=== PATIENT | male | born 1960 | race Caucasian/White ===

== ENCOUNTER 2018-02-08 05:36 | Emergency (ER) | payer OTHER ==
[~2018-02-08] VITALS: Ht 182.9 cm; Wt 104.3 kg
[~2018-02-08 05:36] MED LIST: ADAL20KI; ADAL40PE SQ; Aspirin PO; BENA1TAB6 PO; FINA5TAB PO; MECL12.5 PO; OXYC1TAB15 PO
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
[2018-02-08] MEDS: oxyCODONE/APAP 5/325 1 TAB TABLET PO ONE (06:26)
[2018-02-08] MEDS ORDERED: ACET-704 PO (07:03)
[2018-02-08] MEDS: diazePAM 5 MG TABLET PO ONE (07:28)
[2018-02-08 07:35] VITALS: BP 190/94
--- NOTE | 2018-02-08 07:46 | RAD ---
Left shoulder, 3 views, 02/08/2018: HISTORY: Fall, shoulder pain There are small calcifications along the lateral margin of the left humeral head at the greater tuberosity level. These are likely tendinous calcifications, although cortical fractures of indeterminate age cannot be excluded. No major fracture or dislocation is identified. IMPRESSION: Small calcifications along the lateral margin of the greater tuberosity as described above, likely of tendinous origin. If shoulder pain persist, radiographic follow-up may be useful in excluding an underlying fracture. Electronically signed by: Vijay Beverly MD (02/08/2018 7:42 AM) [facility]
== END 2018-02-08 07:41 | disposition home or self-care (01) ==
LOC: ER 05:36
DX: S42.202A Unspecified fracture of upper end of left humerus, initial encounter for closed fracture (principal); E78.00 Pure hypercholesterolemia, unspecified; I10 Essential (primary) hypertension; Z88.5 Allergy status to narcotic agent; Z88.8 Allergy status to other drugs, medicaments and biological substances; W10.9XXA Fall (on) (from) unspecified stairs and steps, initial encounter; Y93.89 Activity, other specified; Y92.89 Other specified places as the place of occurrence of the external cause; Y99.8 Other external cause status
CPT/HCPCS: 73030; 99284

== ENCOUNTER → 2018-02-12 | Outpatient (CLI) | payer OTHER ==
[2018-02-08 07:35] VITALS: BP 190/94
[~2018-02-12] MED LIST changes: +ACET-704 PO
--- NOTE | 2018-02-12 16:28 | RAD ---
MR of the left shoulder Indication: Left shoulder pain for one week after a fall.. Comparison: None are available. Technique: Standard multiplanar sequences are obtained. Findings: Artifact: Mild motion degradation. Acromioclavicular joint:Intact. Rotator cuff: * Supraspinatus-infraspinatus tendon: Thickening with increased signal compatible with tendinosis. Small partial-thickness undersurface tear of the supraspinatus, no more than 30% deep with a linear morphology. No large or full-thickness tear. Small linear undersurface tear at the infraspinatus tendon attachment, about 90% across and 8 mm AP diameter. * Subscapularis tendon: Mild partial tearing. * Muscle bulk: Within normal limits * Subacromial subdeltoid bursa: Small effusion. Fluid: No significant glenohumeral effusion. Glenohumeral cartilage: No acute defect or advanced DJD. Labrum: Focal heterogeneous signal at the superior labral base, has the appearance of susceptibility effect may be related to prior surgery. If no surgical intervention here, then compatible with a small tear. Biceps tendon: Intact Bones: Comminuted nondisplaced posttraumatic fracture of the greater tuberosity with mild fragment elevation. Elevation measures about 7 mm. There is a linear rectangular defect within the anterosuperior humeral head presumably a anchor screw. Soft tissue: Intramuscular edema within the anterior deltoid muscle. There is also some more intense unorganized fluid signal/edema along the anterior proximal humerus.. Impression: 1. Nondisplaced comminuted posttraumatic fracture of the greater tuberosity. 2. Small superficial partial-thickness tear of the supraspinatus tendon, deep linear undersurface tear of the infraspinatus tendon. Partial subscapularis tendon tear. 3. Heterogeneous signal at the superior labrum, compatible with a tear, unless the patient has had surgical intervention here. 4. Soft tissue and intramuscular edema or contusion along the anterior shoulder. Electronically signed by: Aly Miller MD (02/12/2018 4:24 PM) [facility]
== END | disposition home or self-care (01) ==
LOC: MRI 15:10
PROVIDERS: ATTEND Orthopaedic Surgery Sports Medicine
DX: S42.92XA Fracture of left shoulder girdle, part unspecified, initial encounter for closed fracture (principal); M75.102 Unspecified rotator cuff tear or rupture of left shoulder, not specified as traumatic; M25.412 Effusion, left shoulder; R60.0 Localized edema; X58.XXXA Exposure to other specified factors, initial encounter; Y93.89 Activity, other specified; Y92.89 Other specified places as the place of occurrence of the external cause; Y99.8 Other external cause status
CPT/HCPCS: 73221

== ENCOUNTER → 2020-12-13 | Outpatient (CLI) | payer OTHER ==
[2018-03-07 10:40] VITALS: BP 145/74
[~2020-12-13] MED LIST changes: +AMOX1TAB58 PO; +BENA10TA67 PO; +HYDR-2759 PO; +HYDR-3164 PO; +PRAV40TA2 PO
--- NOTE | 2020-12-13 17:30 | KCIC ---
EXAMINATION: CT LOWER RIGHT EXTREMITY WITHOUT CONTRAST, 12/13/2020 2:17 PM CLINICAL INDICATION: Conformance protocol, preoperative planning right knee COMPARISON: Right knee radiograph 11/19/2020 TECHNIQUE: Helical CT imaging performed of the right lower extremity without the use of intravenous c ontrast per Conformis protocol. Sagittal and coronal reformats were obtained. One or more of the following individualized dose reduction techniques were utilized for this examinat ion: 1. Automated exposure control 2. Adjustment of the mA and/or kV according to patient size 3. Use of iterative reconstruction technique. FINDINGS: There is tricompartmental joint space narrowing, greatest in patellofemoral cartilage where there are multiple subchondral cysts. There are small tricompartment osteophytes. There is an intero sseous cyst in the tibia near the lateral tibial spine. No acute fracture. Small joint effusion. Smal l Cardoza cyst. Quadriceps and patellar tendons are intact. Evaluation of cruciate and collateral ligam ents is limited by CT. The right hip is unremarkable. Probable cyst or lipoma in the calcaneus. Small os trigonum. Degenerat maryuri changes at the posterior aspect of the fibula. IMPRESSION: Tricompartmental degenerative joint disease in the right knee, greatest in the patellofem oral compartment. Electronically signed by: Janelle Larose MD (12/13/2020 5:28 PM) [id number]
== END ==
LOC: KCIC CT 14:10
PROVIDERS: ATTEND Orthopaedic Surgery
DX: M17.0 Bilateral primary osteoarthritis of knee (principal); M25.761 Osteophyte, right knee; M71.21 Synovial cyst of popliteal space [Baker], right knee; M25.461 Effusion, right knee
CPT/HCPCS: 73700

== ENCOUNTER → 2021-01-14 | Outpatient (CLI) | payer OTHER ==
[2018-03-07 10:40] VITALS: BP 145/74
[~2021-01-14] MED LIST changes: +DIPH25CA58 PO; +IBUP-1060 PO; +MELO15TA23 PO; +SECU150P2 SQ
[2021-01-14 09:20] LABS: BASO # 0.1 x10^3/uL (0.0-0.2); BASO % 1 % (0-3); EOS # 0.3 x10^3/uL (0.0-0.7); EOS % 5 % (0-3); HEMATOCRIT 47.5 % (39.0-53.0); HEMOGLOBIN 16.3 g/dL (13.0-17.5); LYMPH # 1.5 x10^3/uL (1.0-4.8); LYMPH % 31 % (24-48); MEAN CORPUSCULAR HEMOGLOBIN 32 pg (25-35); MEAN CORPUSCULAR HGB CONC 34 g/dL (31-37); MEAN CORPUSCULAR VOLUME 94 fL (79-100); MONO # 0.5 x10^3/uL (0.0-1.1); MONO % 10 % (0-9); NEUT # 2.6 x10^3/uL (1.8-7.7); NEUT % 54 % (31-73); PLATELET COUNT 184 x10^3/uL (140-400); RED BLOOD COUNT 5.08 x10^6/uL (4.30-5.70); RED CELL DISTRIBUTION WIDTH 13.1 % (11.5-14.5); WHITE BLOOD COUNT 4.9 x10^3/uL (4.0-11.0)
[2021-01-14 09:26] LABS: ALBUMIN 3.7 g/dL (3.4-5.0); CALCIUM 8.4 mg/dL (8.5-10.1); CREATININE 0.9 mg/dL (0.7-1.3); GFR 86.4; POTASSIUM 4.3 mmol/L (3.5-5.1)
[2021-01-14 09:28] LABS: PROTHROMBIN TIME PATIENT 12.2 SEC (11.7-14.0)
--- NOTE | 2021-01-14 12:32 | EKG ---
[facility] [address] [place] [address] Test Date: 2021-01-14 Test Time: 12:30:31 Pat Name: DELLA RIVERA Department: Room: Gender: M Bottler: JM : 1960 Requested By: JIL ESCALANTE Order Number: [id number] Reading MD: Caleb Ferris MD Measurements Intervals [place] Rate: 57 P: 39 GA: 136 QRS: 34 QRSD: 100 T: 69 QT: 398 QTc: 390 Interpretive Statements SINUS RHYTHM Electronically Signed On 01-15-2021 8:58:43 LPN [employer] by Caleb Ferris MD
--- NOTE | 2021-01-14 13:11 | RAD ---
EXAMINATION: XR CHEST 2V CLINICAL HISTORY: Joint prehab class, hx hyperlipidemia, right knee surgery EXAM DATE/TIME: 01/14/2021 12:38 PM COMPARISON: 11/10/2015 FINDINGS: Lines, Tubes, and Devices: None. Cardiomediastinal Silhouette: Within normal limits. Lungs and Pleura: Questionable mild patchy opacities in the right lower lung zone. No evidence of ple ural effusion. Pulmonary vasculature unremarkable. Bones and Soft Tissues: Mild degenerative changes in the mid to lower thoracic spine. IMPRESSION: Questionable mild patchy airspace disease in the right lower lung zone. Electronically signed by: Dimitry Esparza DO (01/14/2021 1:09 PM) [facility]
[2021-01-15 01:12] LABS: HEMOGLOBIN A1C 5.5 % (4.8-5.6)
== END ==
LOC: SURGPAT 12:25
PROVIDERS: ATTEND Orthopaedic Surgery
DX: Z01.818 Encounter for other preprocedural examination (principal); M47.814 Spondylosis without myelopathy or radiculopathy, thoracic region; M17.11 Unilateral primary osteoarthritis, right knee; Z83.42 Family history of familial hypercholesterolemia
CPT/HCPCS: 36415; 71046; 80048; 82040; 82306; 83036; 85025; 85610; 85651; 85730; 87641; 93005

== ENCOUNTER 2021-02-04 07:27 | Inpatient (IN) | payer OTHER ==
[2021-01-15 09:32] VITALS: BP 173/103
[~2021-02-04] VITALS: Ht 182.9 cm; Wt 106.8 kg
[~2021-02-04 07:27] MED LIST changes: +ACETAMINOPHEN 500 MG TABLET PO PRN; +GABAPENTIN 300 MG CAPSULE. PO PRN; +IV RINGERS,LACTATED 1000ML 1,000 ML IV SCH; +PROCHLORPERAZINE 10 MG/2 ML VIAL. IVP PRN; +TRANEXAMIC ACID 1,000 MG in IV NS 50ML -- 1ST BAG INJ ONE; +TV=62ml MORPHINE 5 MG, KETOROLAC 30 MG, ROPIV, EPI INT ART ONE; +fentaNYL PF VIAL 100 MCG/2 ML VIAL IVP PRN
[2021-02-04] MEDS ORDERED: VANCOMYCIN 1 GM VIAL. ONE (07:43)
[2021-02-04] MEDS ORDERED: TRANEXAMIC ACID 1,000 MG in IV NS 50ML -- 2ND BAG INJ ONE (08:00)
[2021-02-04] MEDS ORDERED: fentaNYL PF VIAL 100 MCG/2 ML VIAL ONE ×3 (08:07→11:38)
[2021-02-04] MEDS ORDERED: PROPOFOL 10 MG/ML (20ML) VIAL. IV ONE (08:07)
[2021-02-04] MEDS ORDERED: ONDANSETRON PF 4 MG/2 ML VIAL. ONE (08:07)
[2021-02-04] MEDS ORDERED: DEXAMETHASONE SOD PHOS 4 MG/ML VIAL ONE (08:07)
[2021-02-04 08:08] VITALS: BP 159/97
[2021-02-04] MEDS ORDERED: TRANEXAMIC ACID in NS IVPB 100 ML ONE (09:36)
[2021-02-04] MEDS ORDERED: diphenhydrAMINE 50 MG/ML VIAL IVP PRN (09:45)
[2021-02-04] MEDS ORDERED: 0.9 % SODIUM CHLORIDE 10 ML DISP.SYRIN. IV PRN (09:45)
--- NOTE | 2021-02-04 11:04 | PDOC4 ---
OPERATIVE NOTE Date: Date: Feb 04, 2021 Pre-Op Diagnosis: Severe degenerative joint disease right knee Post-Op Diagnosis: Same Procedure Performed: Right total knee arthroplasty Surgeon: Shawnee Anesthesia Type: General Blood Loss: 100 cc Specimans Obtained: Bone right knee Findings: See dictation Complications: None Operative Note: See dictated op note 35 patella lateral AP insert medial 6 insert tibial JIL ESCALANTE Jr., DO Feb 04, 2021 11:04
[2021-02-04] MEDS ORDERED: HYDROmorphone 2 MG/ML VIAL ONE (11:16)
[2021-02-04] MEDS: HYDROmorphone 2 MG/ML VIAL IVP PRN ×4 (11:22→12:10)
[2021-02-04] MEDS: fentaNYL PF VIAL 100 MCG/2 ML VIAL IVP PRN ×4 (11:22→11:54)
--- NOTE | 2021-02-04 11:38 | HP ---
DATE OF SERVICE: 02/04/2021 ADMIT DATE: 02/04/2021 CHIEF COMPLAINT: Right knee pain. BRIEF HISTORY OF PRESENT ILLNESS: The patient is a 60-year-old male who has right knee pain which is unremitting and it is not responsive to conservative therapies with multiple injections, limited activities, etc. He has already tried pain medications as well, but has significant difficulty with activities of daily living, especially going up and down stairs and in and out of chairs and also driving is significantly difficult and again not responsive to conservative therapies. PAST MEDICAL HISTORY: Remarkable for hypertension, rheumatoid arthritis as well as hyperlipidemia. PAST SURGICAL HISTORY: Appendectomy, knee arthroplasty, right ankle ORIF and tonsillectomy. HOSPITALIZATIONS: Cellulitis back in February of 2018. FAMILY HISTORY: Noncontributory. SOCIAL HISTORY: The patient does not use tobacco, did in the past but has not done that for the last 10 years. Minimal alcohol history. MEDICATIONS: Include Cosentyx 300 mg/1 mL every month, benazepril 20 mg a day, finasteride 5 mg per day. Also, [place] as needed. Cyclobenzaprine 10 mg daily as needed p.r.n. PHYSICAL EXAMINATION: The patient is alert and oriented. He is well-developed, well-nourished, no abnormalities. The head is within normal limits at this point. No abnormalities are noted. The heart is of regular rate and rhythm. The abdomen is soft and nontender, nondistended. Examination of the right knee reveals her to be lacking extension by 5 degrees. Flexion is only up to 105 and significantly apprehensive at the patellofemoral joint. There is a lot of tenderness to palpation of the medial more than lateral joint line at this point, but no instability in AP or varus valgus plane at this point. No instability, no atrophy of musculature, right versus left. Distal neurovascular status is fully intact. IMPRESSION: Degenerative joint disease, right knee. PLAN: At this time, he wishes to undergo right total knee arthroplasty since he has failed conservative therapies. All questions were answered to his satisfaction today. JIMMIE MATUTE: Caroline TID: [id number]
[2021-02-04] MEDS: ONDANSETRON PF 4 MG/2 ML VIAL. IVP SCH ×2 (12:00→18:00)
[2021-02-04] MEDS ORDERED: MORPHINE SULFATE 2 MG/ML INJ. ONE ×2 (12:12→13:56)
[2021-02-04] MEDS: MORPHINE SULFATE 2 MG/ML INJ. IVP PRN ×4 (12:17→15:20)
--- NOTE | 2021-02-04 12:20 | RAD ---
XR KNEE_RT 1-2 VIEWS History: Postop Comparison: 11/19/2020 Technique: Portable AP and crosstable lateral views of the right knee. Findings/ Impression: Postsurgical features from total knee arthroplasty without evidence of complication. Distal femur, pr oximal tibial components appear well seated. Postsurgical changes of the articular surface of the pat roberto. Alignment is anatomic. Expected subcutaneous and intra-articular swelling and air consistent wi th recent instrumentation. Electronically signed by: Aly Ag MD (02/04/2021 12:18 PM) [facility]
--- NOTE | 2021-02-04 15:25 | NUR ---
Arrived to unit by bed from PACU. Awake with no c/o other than being hungry. Lunch box ordered from PACU. Dressing is d/i with WHITLEY on Right Knee. Elevated on pillow with ice pack. Pt able to wiggle toes easily, warm touch and pedal pulses + bilaterally. IVF's intact and infusing. YUKO and SCD on left leg. Oriented to room and controls. Side rails up x's 2 with call light in reach. at bedside. Cont. monitor.
[2021-02-04 15:45] VITALS: BP 97/74
[2021-02-04] MEDS ORDERED: FLU VACC QUAD 21-22 (6MOS+) PF 0.5 ML SYRINGE. VAX IM ONE (16:15)
[2021-02-04 16:30] VITALS: BP 104/83
[2021-02-04] MEDS: FERROUS SULFATE 325 MG TABLET. PO SCH ×2 (18:03→18:07)
[2021-02-04] MEDS: oxyCODONE IR 5 MG TABLET PO PRN (18:07)
[2021-02-04] MEDS: IV NORMAL SALINE 1000ML BAG 1,000 ML IV SCH (18:08)
[2021-02-04 19:00] VITALS: BP 119/78
[2021-02-04] MEDS: ZOLPIDEM 5 MG TABLET. PO PRN ×2 (21:37→22:59)
[2021-02-04 23:00] VITALS: BP 113/73
--- NOTE | 2021-02-05 01:29 | OP ---
DATE OF SURGERY: 02/04/2021 PREOPERATIVE DIAGNOSIS: Severe degenerative joint disease, right knee. POSTOPERATIVE DIAGNOSIS: Severe degenerative joint disease, right knee. PROCEDURE: Right total knee arthroplasty. SURGEON: Gurinder Mallory DO DATA PROCESSING MANAGER: Kam Greene MD ANESTHESIA: General. COMPLICATIONS: None. ESTIMATED BLOOD LOSS: 100 mL COMPONENTS: ConforMIS right total knee replacement with a tibial polyethylene insert, 6 medial, A lateral and a 35 patella as the components. DESCRIPTION OF PROCEDURE: The patient was taken to the operative suite, given a general anesthetic. Right lower extremity was then prepped and draped in a sterile fashion. Incision was made through skin and subcutaneous tissues down to the extensor mechanism. Superficial bleeding was coagulated using a Bovie knife. A medial parapatellar incision was then made. After exposure, there was noted to be severe degenerative joint disease in all compartments of the knee. The patella was then everted, measured and cut to the appropriate size, which was a 32. This was measured appropriately. The drill holes were made through the guide for the component. The knee was then taken into a flexed position. Retractors were placed medially and laterally. The F1 guide was then placed on the distal femur. A drill was used for the site for the cartilage removal and then using a curved curette, the cartilage was removed from the distal femur and then the F2 guide was placed in this position. The drill was placed through the F2 guide on the medial and lateral femoral condyles and held with pins. This was also held for the distal cut on the proximal aspect of the femur anteriorly with 2 drill pins followed by a locking pin as well. The cut was then made in the distal femur. This was noted to be a good flush cut. The pins were then removed from this components trial and then the pins were placed in the femoral sites on the medial and lateral femoral condyles. The next guide was then placed on the distal femur and held flush well. Two more pins were placed and then the anterior and posterior chamfer cuts and drill holes were made at this point. Then, these guides were removed. The final femoral guide was then put in place and held appropriately where the finishing cuts were made along the femoral condyle medially and laterally and then this was removed. Attention was then directed to the tibia. The remnants of the medial and lateral menisci as well as the ACL were removed. The PCL remained completely intact at this point. After retracting medially, laterally and posteriorly, the tibial guide was placed in appropriate position and again, a curette was used to remove the remaining cartilage on the proximal tibia. Tibial guide was then held with pins, two straight pins and then one locking pin and then the cut was made for the tibia. This was released of its soft tissue and removed in its entirety and the trials were placed on the femur and tibia with a 6A tibial tray insert. As this was trialled, this was noted to be very stable throughout the arc of motion. This was stable in flexion and equal in flexion and extension throughout the arc of motion. There was no instability noted at any point. This was marked for rotation on the tibial side of the joint and after this was held with pins, the drill and the keel were placed the appropriate depth for this. This was then copiously irrigated on the back table while cement was being mixed. After this was suctioned dry, cement was placed on cut surfaces. The tibia was impacted first, followed by the femur. This was held with the trial polyethylene in extension until hardening of cement and cement was placed on the patella, which was held with a patellar clamp until hardening of cement. After excess cement was then removed, this was taken through motion. This was noted to be the best stable situation; therefore, the trials were removed and the actual medial 6 was placed and the lateral A was placed at this point. This was noted again to be stable; therefore, tourniquet was deflated. No excessive bleeding was noted. The medial parapatellar incision was then closed using the running locking barbed suture. Then, this was taken through range of motion and noted to be sealed off completely. The superficial tissues and skin were reapproximated. Sterile dressing was applied. This was all done after local was placed within the depths of the capsular region of the knee. The patient was then taken from the operative bed to the postoperative bed, taken to the PACU in stable condition. ROME DR: Caroline TID: [id number]
[2021-02-05] MEDS: MORPHINE SULFATE 2 MG/ML INJ. IVP PRN ×3 (01:54→06:27)
[2021-02-05 03:00] VITALS: BP 145/63
[2021-02-05] MEDS: oxyCODONE IR 5 MG TABLET PO PRN ×5 (04:46→23:14)
[2021-02-05 05:15] LABS: PROTHROMBIN TIME PATIENT 12.4 SEC (11.7-14.0)
[2021-02-05] MEDS ORDERED: GABAPENTIN 100 MG CAPSULE. PO SCH (06:00)
[2021-02-05] MEDS: ONDANSETRON PF 4 MG/2 ML VIAL. IVP SCH ×2 (06:00)
[2021-02-05] MEDS: traMADol 50 MG TABLET PO SCH ×3 (06:26→17:33)
[2021-02-05 07:00] VITALS: BP 161/74
[2021-02-05] MEDS: ASPIRIN 325 MG TABLET PO SCH (08:00)
[2021-02-05] MEDS: SENNOSIDES/DOCUSATE 8.6/50MG TABLET. PO SCH (08:33)
[2021-02-05] MEDS: MULTIVITAMIN with MINERAL TABLET. PO SCH (08:33)
[2021-02-05] MEDS: MELOXICAM 7.5 MG TABLET PO SCH (08:35)
[2021-02-05] MEDS: ACETAMINOPHEN 500 MG TABLET PO SCH ×3 (08:36→20:38)
[2021-02-05] MEDS: fentaNYL PF VIAL 100 MCG/2 ML VIAL IVP PRN ×3 (08:40→14:18)
[2021-02-05 11:00] VITALS: BP 124/95
--- NOTE | 2021-02-05 13:10 | PATHOLOGY ---
[facility] Accession Number: [id number] . 01 Material submitted: . knee - RIGHT KNEE BONE. Modifiers: right . 01 Clinical history: . RIGHT KNEE PAIN RIGHT TOTAL KNEE ARTHROPLASTY . 02 Diagnosis: Segments of bone and soft tissue, right total knee arthroplasty: - Advanced degenerative arthritis with focal subarticular fibrosis. - Degenerative changes of meniscus. . (JPM:mm; 02/05/2021) QLM 02/05/2021 1200 Local . 02 Electronically signed: . Elliot Patel MD, Pathologist NPI- [id number] . 01 Gross description: . The specimen is received in formalin, labeled "Amadou Gee, right knee bone-gross only". Received are multiple segments of bone, including the tibial plateau, admixed with soft tissue, measuring 15.0 x 14.0 x 1.1 cm in aggregate dimensions. Meniscus is present. The articular surfaces are light duff-yellow to dark duff-pink, smooth to roughened, and with signs of eburnation. The specimen is submitted representatively in cassettes A1 and A2, following decalcification.([facility]; 02/04/2021) [facility] 02/05/2021 1157 Local . 02 Pathologist provided ICD-10: M17.11 . 02 CPT . 043747, [id number] Specimen Comment: A courtesy copy of this report has been sent to [phone] Specimen Comment: Report sent to Performed at: 01 [facility] [address], [place] [id number] MD Ayden Adan MD Phone: [phone] Performed at: 02 [facility] [address], [place] [id number] MD Elliot Patel MD Phone: [phone]
--- NOTE | 2021-02-05 14:01 | PDOC2 ---
CONSULT Date of Consult Date of Consult DATE: 02/05/21 TIME: 13:59 Reason for Consult Reason for Consult: Medical management Referring Physician Referring Physician: Dr. Gurinder Mallory Identification/Chief Complaint Chief Complaint Right knee OA Source Source: Patient History of Present Illness Reason for Visit: Mr Gee is a 60-year-old male w/ PMHx HLD, HTN, RA who is admitted for right total knee arthroplasty after failing conservative measures. Seen post-op day 1. He had family note is pain was a little difficult to control and he did have some hypoxia postoperatively due to his pain needs. He notes high pain medication needs previously when he had a right ankle ORIF and subsequent ankle hardware infection back in 2018. He is able to transition from chair to bed well in his work with therapy. No numbness or tingling in his foot no significant swelling no chest pain or shortness of breath. His major complaint is burning in his knee and feels that even with 25 mcg of fentanyl every hour and oxycodone 5 mg every 6 hours his pain is still 10 out of 10 after about 30 minutes after pain medications. Past Medical History Cardiovascular: HTN, Hyperlipidemia, Other Musculoskeletal: Osteoarthritis Infectious disease: Other Past Surgical History Past Surgical History: Appendectomy, Tonsillectomy, Other Family History Family History: Hypertension Social History No ALCOHOL: heavy Drugs: None Lives: with Family Domestic Violence: Neg Current Medications Current Medications Current Medications Fentanyl Citrate (Fentanyl 2ml Vial) 25 mcg PRN Q5MIN PRN IVP MILD PAIN 1-3; Start 02/04/21 at 06:00; Stop 02/05/21 at 05:59; Status DC Fentanyl Citrate (Fentanyl 2ml Vial) 50 mcg PRN Q5MIN PRN IVP MODERATE PAIN 4-6 Last administered on 02/04/21at 11:54; Start 02/04/21 at 06:00; Stop 02/05/21 at 05:59; Status DC Morphine Sulfate (Morphine Sulfate) 1 mg PRN Q10MIN PRN IVP SEVERE PAIN 7-10 Last administered on 02/04/21at 15:20; Start 02/04/21 at 06:00; Stop 02/05/21 at 05:59; Status DC Ringer's Solution 1,000 ml @ 30 mls/hr Q24H IV Last administered on 02/04/21at 08:21; Start 02/04/21 at 06:00; Stop 02/04/21 at 17:59; Status DC Hydromorphone HCl (Dilaudid) 0.5 mg PRN Q10MIN PRN IVP SEVERE PAIN 7-10, 2nd CHOICE Last administered on 02/04/21at 12:10; Start 02/04/21 at 06:00; Stop 02/05/21 at 05:59; Status DC Prochlorperazine Edisylate (Compazine) 5 mg PACU PRN PRN IVP NAUSEA, MRX1 Last administered on 02/04/21at 11:32; Start 02/04/21 at 06:00; Stop 02/05/21 at 05:59; Status DC Gabapentin (Neurontin) 600 mg 1X PREOP PRN PO PRIOR TO PROCEDURE Last administered on 02/04/21at 08:24; Start 02/04/21 at 06:00; Stop 02/04/21 at 18:00; Status DC Acetaminophen (Tylenol) 1,000 mg 1X PREOP PRN PO PRIOR TO PROCEDURE Last administered on 02/04/21at 08:24; Start 02/04/21 at 06:00; Stop 02/04/21 at 18:00; Status DC Cefazolin Sodium/ Dextrose 50 ml @ 100 mls/hr 1X PREOP PRN IV PRIOR TO PROCEDURE; Start 02/04/21 at 06:00; Stop 02/04/21 at 18:00; Status DC Tranexamic Acid 50 ml @ 50 mls/hr 1X PERIOP ONCE INJ ; Start 02/04/21 at 06:00; Stop 02/04/21 at 06:59; Status DC Tranexamic Acid 50 ml @ 50 mls/hr 1X PERIOP ONCE INJ ; Start 02/04/21 at 08:00; Stop 02/04/21 at 08:59; Status DC Morphine Sulfate 5 mg/Ketorolac Tromethamine 30 mg/Ropivacaine 60 ml/Epinephrine HCl 0.5 mg/ Miscellaneous 63 ml @ 63 mls/hr 1X PERIOP ONCE INT ART Last administered on 02/04/21at 10:08; Start 02/04/21 at 06:00; Stop 02/04/21 at 06:59; Status DC Vancomycin HCl (Vancomycin) 1 gm STK-MED ONCE .ROUTE ; Start 02/04/21 at 07:43; Stop 02/04/21 at 07:43; Status DC Propofol (Diprivan) 200 mg STK-MED ONCE IV ; Start 02/04/21 at 08:07; Stop at 08:07; Status DC Dexamethasone Sodium Phosphate (Decadron) 4 mg STK-MED ONCE .ROUTE ; Start 02/04/21 at 08:07; Stop 02/04/21 at 08:07; Status DC Ondansetron HCl (Zofran) 4 mg STK-MED ONCE .ROUTE ; Start 02/04/21 at 08:07; Stop 02/04/21 at 08:07; Status DC Fentanyl Citrate (Fentanyl 2ml Vial) 100 mcg STK-MED ONCE .ROUTE ; Start 02/04/21 at 08:07; Stop 02/04/21 at 08:07; Status DC Morphine Sulfate (Morphine Sulfate) 2 mg PRN Q1HR PRN IVP PAIN Last administered on 02/05/21at 06:27; Start 02/04/21 at 09:45 Fentanyl Citrate (Fentanyl 2ml Vial) 25 mcg PRN Q1HR PRN IVP PAIN, 2nd CHOICE Last administered on 02/05/21at 12:52; Start 02/04/21 at 09:45 Diphenhydramine HCl (Benadryl) 25 mg PRN Q6HRS PRN IVP ITCHING; Start 02/04/21 at 09:45 Multivitamins (Thera M Plus) 1 tab DAILY PO Last administered on 02/05/21at 08:33; Start 02/05/21 at 09:00 Senna/Docusate Sodium (Senna Plus) 1 tab DAILY PO Last administered on 02/05/21at 08:33; Start 02/05/21 at 09:00 Ferrous Sulfate (Feosol) 325 mg BIDWMEALS PO Last administered on 02/04/21at 18:07; Start 02/04/21 at 17:00 Sodium Chloride 1,000 ml @ 40 mls/hr Q24H IV Last administered on 02/04/21at 18:08; Start 02/04/21 at 11:00 Cefazolin Sodium/ Dextrose 50 ml @ 100 mls/hr Q6H IV Last administered on 02/05/21at 04:12; Start 02/04/21 at 15:30; Stop 02/05/21 at 03:59; Status DC Zolpidem Tartrate (Ambien) 5 mg PRN QHS PRN PO INSOMNIA, MAY REPEAT IN 1HR Last administered on 02/04/21at 22:59; Start 02/04/21 at 09:45 Sodium Chloride (Normal Saline Flush) 10 ml QSHIFT PRN IV AFTER MEDS AND BLOOD DRAWS; Start 02/04/21 at 09:45 Acetaminophen (Tylenol) 1,000 mg Q6H PO Last administered on 02/05/21at 08:36; Start 02/05/21 at 09:00 Meloxicam (Mobic) 15 mg DAILY PO Last administered on 02/05/21at 08:35; Start 02/05/21 at 09:00 Tramadol HCl (Ultram) 50 mg Q6H PO Last administered on 02/05/21at 12:33; Start 02/05/21 at 06:00 Gabapentin (Neurontin) 100 mg Q12H PO ; Start 02/05/21 at 06:00; Status UNV Ondansetron HCl (Zofran) 4 mg Q6HRS IVP ; Start 02/04/21 at 12:00; Stop 02/05/21 at 06:01; Status DC Oxycodone HCl (Roxicodone) 5 mg PRN Q4HRS PRN PO Pain score 4-6 Last admini stered on 02/05/21at 09:05; Start 02/04/21 at 09:45 Aspirin (Johana Aspirin) 325 mg DAILYWBKFT PO Last administered on 02/05/21at 08:00; Start 02/05/21 at 08:00 Tranexamic Acid 100 ml @ As Directed STK-MED ONCE .ROUTE ; Start 02/04/21 at 09:36; Stop 02/04/21 at 09:37; Status DC Hydromorphone HCl (Dilaudid) 2 mg STK-MED ONCE .ROUTE ; Start 02/04/21 at 11:16; Stop 02/04/21 at 11:16; Status DC Fentanyl Citrate (Fentanyl 2ml Vial) 100 mcg STK-MED ONCE .ROUTE ; Start 02/04/21 at 11:16; Stop 02/04/21 at 11:16; Status DC Fentanyl Citrate (Fentanyl 2ml Vial) 100 mcg STK-MED ONCE .ROUTE ; Start 02/04/21 at 11:38; Stop 02/04/21 at 11:38; Status DC Morphine Sulfate (Morphine Sulfate) 2 mg STK-MED ONCE .ROUTE ; Start 02/04/21 at 12:12; Stop 02/04/21 at 12:12; Status DC Morphine Sulfate (Morphine Sulfate) 2 mg STK-MED ONCE .ROUTE ; Start 02/04/21 at 13:56; Stop 02/04/21 at 13:56; Status DC Influenza Virus Vaccine Quadrival (Flulaval Quad Syringe) 0.5 ml ONCE ONCE VAX IM Last administered on 02/05/21at 08:48; Start 02/04/21 at 16:15; Stop 02/04/21 at 16:16; Status DC Active Scripts Active [place] 5-325 Tablet (Acetaminophen/Hydrocodone Bitart) 1 Each Tablet 1 Tab PO TID Reported Benadryl (Diphenhydramine Hcl) 25 Mg Capsule 25 Mg PO PRN DAILY PRN Ibuprofen 800 Mg Tablet 800 Mg PO PRN Q6HRS PRN Meloxicam 15 Mg Tablet 15 Mg PO DAILY Cosentyx Pen (Secukinumab) 150 Mg/1 Ml Pen.injctr 300 Mg SQ QMONTH Pravastatin Sodium 40 Mg Tablet 40 Mg PO DAILY Lotensin (Benazepril HCl) 10 Mg Tablet 20 Mg PO DAILY Hydrocodone-Acetamin 5-325 mg (Hydrocodone/Acetaminophen) 1 Each Tablet 1 Tab PO PRN Q4-6HRS PRN Proscar (Finasteride) 5 Mg Tablet 5 Mg PO DAILY Allergies Allergies: Coded Allergies: adhesive tape (Verified Allergy, Intermediate, Itching, 02/04/21) ROS General: No: Chills, Night Sweats, Fatigue, Malaise, Appetite, Other PSYCHOLOGICAL ROS: No: Anxiety, Behavioral Disorder, Concentration difficultie, Decreased libido, Depression, Disorientation, Hallucinations, Hostility, Irritab lity, Memory difficulties, Mood Swings, Obsessive thoughts, Physical abuse, Sexual abuse, Sleep disturbances, Suicidal ideation, Other Eyes: No Blurry vision, No Decreased vision, No Double vision, No Dry eyes, No Excessive tearing, No Eye Pain, No Itchy Eyes, No Loss of vision, No Photophobia, No Scotomata, No Uses contacts, No Uses glasses, No Other HEENT: No: Heacaches, Visual Changes, Hearing change, Nasal congestion, Nasal discharge, Oral lesions, Sinus pain, Sore Throat, Epistaxis, Sneezing, Snoring, Tinnitus, Vertigo, Vocal changes, Other ALLERGY AND IMMUNOLOGY: No: Hives, Insect Bite Sensitivity, Itchy/Watery Eyes, Nasal Congestion, Post Nasal Drip, Seasonal Allergies, Other Hematological and Lymphatic: No: Bleeding Problems, Blood Clots, Blood Transfusions, Brusing, Night Sweats, Pallor, Swollen Lymph Nodes, Other ENDOCRINE: No: Breast Changes, Galactorrhea, Hair Pattern Changes, Hot Flashes, Malaise/lethargy, Mood Swings, Palpitations, Polydipsia/polyuria, Skin Changes, Temperature Intolerance, Unexpected Weight Changes, Other Breast: No New/Changing Breast Lumps, No Nipple changes, No Nipple discharge, No Other Respiratory: No: Cough, Hemoptysis, Orthopnea, Pleuritic Pain, Shortness of breath, SOB with excertion, Sputum Changes, Stridor, Tachypnea, Wheezing, Other Cardiovascular: No Chest Pain, No Palpitations, No Orthopnea, No Paroxysmal Noc. Dyspnea, No Edema, No Lt Headedness, No Other Gastrointestinal: No Nausea, No Vomiting, No Abdominal Pain, No Diarrhea, No Constipation, No Melena, No Hematochezia, No Other Genitourinary: No Dysuria, No Frequency, No Incontinence, No Hematuria, No Retention, No Discharge, No Urgency, No Pain, No Flank Pain, No Other, No , No , No , No , No , No , No Musculoskeletal: Yes Gait Disturbance, Yes Joint Stiffness; No Joint Pain, No Joint Swelling, No Muscle Pain, No Muscular Weakness, No Pain In:, No Swelling In:, No Other Neurological: No Behavorial Changes, No Bowel/Bladder ControlChng, No Confusion, No Dizziness, No Gait Disturbance, No Headaches, No Impaired Coord/balance, No Memory Loss, No Numbness/Tingling, No Seizures, No Speech Prob lems, No Tremors, No Visual Changes, No Weakness, No Other Skin: No Dry Skin, No Eczema, No Hair Changes, No Lumps, No Mole Changes, No Mottling, No Nail Changes, No Pruritus, No Rash, No Skin Lesion Changes, No Other, No Acne Physical Exam General: Alert, Oriented X3, Cooperative, moderate distress HEENT: Atraumatic, PERRLA, EOMI, Mucous membr. moist/pink Lungs: Clear to auscultation, Normal air movement Heart: Regular rate, Normal S1, Normal S2, No murmurs Abdomen: Normal bowel sounds, Soft, No tenderness, No hepatosplenomegaly, No masses Extremities: No clubbing, No cyanosis, No edema, Normal pulses, No tenderness/swelling Skin: No rashes, No breakdown Neuro: Normal speech, Strength at 5/5 X4 ext, Normal tone, Sensation intact, Cranial nerves 3-12 NL, Reflexes 2+ Psych/Mental Status: Mental status NL, Mood NL MUSCULOSKELETAL: Abnormal exam of right (Knee wrapped in compressive EZ) Vitals VITALS Vital Signs Date Time Temp Pulse Resp B/P (MAP) Pulse Ox O2 Delivery O2 Flow Rate FiO2 02/05/21 12:52 Room Air 02/05/21 11:00 97.9 78 20 124/95 (105) 98 97.9 02/04/21 15:14 10 Labs Labs Laboratory Tests Test 02/05/21 04:15 Prothrombin Time 12.4 SEC (11.7-14.0) Prothromb Time International Ratio 0.9 (0.8-1.1) Laboratory Tests Test 02/05/21 04:15 Prothrombin Time 12.4 SEC (11.7-14.0) Prothromb Time International Ratio 0.9 (0.8-1.1) Assessment/Plan Assessment/Plan A/P: Right knee OA - s/p TKA on 02/04/2021. Pain control, will change to dilaudid 0.5mg IV q2hrs, add gabapentin given his ETOH history. Will have on nocturnal pulse oximetry as well given his desaturations before HTN - cont home meds. Monitor renal function in AM HLD - statin RA - on cosentyx monthly outpatient FEN - Regular diet PPX - on asa FULL CODE Dispo - observation HERNANDEZ BROWN MD Feb 05, 2021 14:01
[2021-02-05 15:00] VITALS: BP 122/82
[2021-02-05] MEDS: GABAPENTIN 300 MG CAPSULE. PO SCH ×2 (17:32→20:38)
[2021-02-05] MEDS: FERROUS SULFATE 325 MG TABLET. PO SCH (17:33)
[2021-02-05] MEDS: HYDROmorphone 2 MG TABLET PO PRN (17:34)
[2021-02-05] MEDS: FINASTERIDE 5 MG TABLET. PO SCH (17:34)
[2021-02-05] MEDS: LISINOPRIL 20 MG TABLET PO SCH (17:39)
[2021-02-05 19:00] VITALS: BP 114/82
[2021-02-05] MEDS: ZOLPIDEM 5 MG TABLET. PO PRN (20:38)
[2021-02-05 23:29] VITALS: BP 108/78
[2021-02-06] MEDS ORDERED: diphenhydrAMINE HCL 25 MG CAPSULE PO PRN (00:15)
[2021-02-06] MEDS: traMADol 50 MG TABLET PO SCH ×4 (00:17→18:00)
[2021-02-06] MEDS: diphenhydrAMINE HCL 25 MG CAPSULE PO PRN ×2 (00:17→21:19)
[2021-02-06] MEDS: IV NORMAL SALINE 1000ML BAG 1,000 ML IV SCH ×2 (01:11→11:00)
[2021-02-06] MEDS: oxyCODONE IR 5 MG TABLET PO PRN ×4 (03:32→17:52)
[2021-02-06] MEDS: ACETAMINOPHEN 500 MG TABLET PO SCH ×4 (03:32→21:18)
[2021-02-06 04:24] LABS: HEMATOCRIT 40.2 % (39.0-53.0); HEMOGLOBIN 13.4 g/dL (13.0-17.5)
[2021-02-06 04:28] LABS: PROTHROMBIN TIME PATIENT 13.2 SEC (11.7-14.0)
[2021-02-06 04:39] LABS: CALCIUM 7.9 mg/dL (8.5-10.1); CREATININE 0.9 mg/dL (0.7-1.3); GFR 86.4; POTASSIUM 4.2 mmol/L (3.5-5.1)
[2021-02-06 07:15] VITALS: BP 140/70
--- NOTE | 2021-02-06 08:00 | NUR ---
up in recliner; he states his pain is a 10 and he cannot stand the burning. given am meds and oxycodone 10 and dilaudid with mobic and gabapentin. ice to area. at bedside
[2021-02-06] MEDS: GABAPENTIN 300 MG CAPSULE. PO SCH ×2 (08:45→13:16)
[2021-02-06] MEDS: FERROUS SULFATE 325 MG TABLET. PO SCH (08:45)
[2021-02-06] MEDS: MELOXICAM 7.5 MG TABLET PO SCH (08:46)
[2021-02-06] MEDS: ATORVASTATIN CALCIUM 10 MG TABLET. PO SCH (08:47)
[2021-02-06] MEDS: ASPIRIN 325 MG TABLET PO SCH (08:47)
[2021-02-06] MEDS: MULTIVITAMIN with MINERAL TABLET. PO SCH (08:47)
[2021-02-06] MEDS: SENNOSIDES/DOCUSATE 8.6/50MG TABLET. PO SCH (08:47)
[2021-02-06] MEDS: FINASTERIDE 5 MG TABLET. PO SCH (08:47)
[2021-02-06] MEDS: HYDROmorphone 2 MG TABLET PO PRN ×2 (08:52→17:49)
--- NOTE | 2021-02-06 10:00 | NUR ---
states he is feeling better. he is rating his pain an7-8. rests in recliner. unsure about going home; "what will I do if the pain gets really bad again?
[2021-02-06] MEDS: LISINOPRIL 20 MG TABLET PO SCH (10:20)
[2021-02-06 10:57] VITALS: BP 112/67
--- NOTE | 2021-02-06 13:27 | PDOC ---
[employer] PROGRESS NOTE Date of Service DOS: DATE: 02/06/21 TIME: 13:26 Chief Complaint Chief Complaint Right knee OA - s/p TKA on 02/04/2021. Pain control, will change to dilaudid 0.5mg IV q2hrs, add gabapentin given his ETOH history. Will have on nocturnal pulse oximetry as well given his desaturations before HTN - cont home meds. Monitor renal function in AM HLD - statin RA - on cosentyx monthly outpatient History of Present Illness History of Present Illness cannot lie down more than 40 minutes, has severe burning pain to knee getting 1000 mg tylenol, will increase gabapentin for burning pain decrease the iron PO for hard stool, add miralax Vitals/I&O Vitals/I&O: Vital Signs Date Time Temp Pulse Resp B/P (MAP) Pulse Ox O2 Delivery O2 Flow Rate FiO2 02/06/21 10:57 98.2 75 18 112/67 (82) 95 Room Air 98.2 I & O 02/05/21 02/05/21 02/06/21 15:00 23:00 07:00 Intake Total 400 ml Balance 400 ml Physical Exam General: Alert, Oriented X3, Cooperative, moderate distress Heart: Regular rate, Normal S1, Normal S2, No murmurs Abdomen: Normal bowel sounds, Soft, No tenderness, No hepatosplenomegaly, No ma sses Extremities: No clubbing, No cyanosis, No edema, Normal pulses, No tenderness/swelling Skin: No rashes, No breakdown Labs Labs: Laboratory Tests Test 02/06/21 03:15 Hemoglobin 13.4 g/dL (13.0-17.5) Hematocrit 40.2 % (39.0-53.0) Mean Corpuscular Hemoglobin Concent 33 g/dL (31-37) Prothrombin Time 13.2 SEC (11.7-14.0) Prothromb Time International Ratio 1.0 (0.8-1.1) Sodium Level 137 mmol/L (136-145) Potassium Level 4.2 mmol/L (3.5-5.1) Chloride Level 101 mmol/L (98-107) Carbon Dioxide Level 29 mmol/L (21-32) Anion Gap 7 (6-14) Blood Urea Nitrogen 17 mg/dL (8-26) Creatinine 0.9 mg/dL (0.7-1.3) Estimated GFR (Cockcroft-Gault) 86.4 Glucose Level 83 mg/dL (70-99) Calcium Level 7.9 mg/dL (8.5-10.1) Review of Systems Review of Systems: waknes, burning knee pain hard stools Comment Review of Relevant I have reviewed the following items jesse (where applicable) has been applied. Medications: Current Medications Medications (Trade) Dose Ordered Sig/Brenda Route PRN Reason Start Time Stop Time Status Last Admin Dose Admin Finasteride (Proscar) 5 mg DAILY PO 02/05/21 14:00 02/06/21 08:47 Lisinopril (Prinivil) 20 mg DAILY PO 02/05/21 14:00 02/06/21 10:20 Atorvastatin Calcium (Lipitor) 10 mg DAILY PO 02/06/21 09:00 02/06/21 08:47 Gabapentin (Neurontin) 300 mg TID PO 02/05/21 15:00 02/06/21 13:16 Hydromorphone HCl (Dilaudid) 0.5 mg PRN Q2HR PRN PO PAIN 02/05/21 15:00 02/06/21 08:52 Oxycodone HCl (Roxicodone) 10 mg PRN Q4HRS PRN PO SEVERE PAIN 7-10 02/05/21 15:15 02/06/21 13:15 Diphenhydramine HCl (Benadryl) 50 mg HS PRN PO ITCHING/SLEEP SEVERE 02/06/21 00:15 02/06/21 00:17 Justifications for Admission Other Justification JACQUIE KUO MD Feb 06, 2021 13:27
[2021-02-06] MEDS ORDERED: POLYETHYLENE GLYCOL 3350 17 GM PACKET. PO ONE (14:00)
[2021-02-06] MEDS: GABAPENTIN 400 MG CAPSULE. PO SCH ×2 (15:43→21:17)
[2021-02-06] MEDS ORDERED: KETOROLAC 30 MG/ML VIAL. IM PRN (17:30)
--- NOTE | 2021-02-06 18:00 | NUR ---
had a fair day. pain has been better controlled today. He is rating his pain between 6-7 burning is not as bad
[2021-02-06 19:40] VITALS: BP 114/84
[2021-02-07] MEDS: HYDROmorphone 2 MG TABLET PO PRN (00:26)
[2021-02-07 00:28] VITALS: BP 141/83
--- NOTE | 2021-02-07 00:29 | NUR ---
Patient awakened per request, Toradol given IM and Dilaudid po. Was sleeping soundly, rating pain 7-8.
[2021-02-07] MEDS: ACETAMINOPHEN 500 MG TABLET PO SCH ×3 (03:00→14:53)
[2021-02-07] MEDS: traMADol 50 MG TABLET PO SCH ×3 (06:00→12:00)
[2021-02-07 06:21] LABS: HEMATOCRIT 41.2 % (39.0-53.0); HEMOGLOBIN 13.4 g/dL (13.0-17.5)
[2021-02-07 06:23] LABS: PROTHROMBIN TIME PATIENT 12.4 SEC (11.7-14.0)
[2021-02-07 07:15] VITALS: BP 128/80
--- NOTE | 2021-02-07 07:49 | NUR ---
[facility] down since 99, paper charting done.
[2021-02-07] MEDS: MELOXICAM 7.5 MG TABLET PO SCH (08:02)
[2021-02-07] MEDS: ASPIRIN 325 MG TABLET PO SCH (08:02)
[2021-02-07] MEDS: oxyCODONE IR 5 MG TABLET PO PRN ×2 (08:04→12:26)
[2021-02-07] MEDS: SENNOSIDES/DOCUSATE 8.6/50MG TABLET. PO SCH (08:04)
[2021-02-07] MEDS: GABAPENTIN 400 MG CAPSULE. PO SCH ×2 (08:04→14:53)
[2021-02-07 08:05] VITALS: BP 128/80
[2021-02-07] MEDS: FINASTERIDE 5 MG TABLET. PO SCH (08:05)
[2021-02-07] MEDS: ATORVASTATIN CALCIUM 10 MG TABLET. PO SCH (08:05)
[2021-02-07] MEDS: MULTIVITAMIN with MINERAL TABLET. PO SCH (08:05)
[2021-02-07] MEDS: LISINOPRIL 20 MG TABLET PO SCH (08:05)
[2021-02-07] MEDS ORDERED: FERROUS SULFATE 325 MG TABLET. PO SCH (09:00)
[2021-02-07] MEDS ORDERED: POLYETHYLENE GLYCOL 3350 17 GM PACKET. PO SCH (09:00)
[2021-02-07] MEDS: IV NORMAL SALINE 1000ML BAG 1,000 ML IV SCH (10:31)
[2021-02-07] MEDS ORDERED: KETO10TA PO (11:52)
[2021-02-07] MEDS ORDERED: OXYC1TAB19 PO (11:52)
[2021-02-07] MEDS ORDERED: MULT1TAB92 PO (11:52)
[2021-02-07] MEDS ORDERED: GABA300C18 PO (11:52)
[2021-02-07] MEDS ORDERED: POLY17PO52 PO (11:52)
--- NOTE | 2021-02-07 12:07 | PDOC3 ---
Discharge Summary Visit Information Date of Admission: Feb 04, 2021 Date of Discharge: Feb 07, 2021 Final Diagnosis Right knee OA - s/p TKA on 02/04/2021. Pain control, will change to dilaudid 0.5mg IV q2hrs, add gabapentin given his ETOH history. Will have on nocturnal pulse oximetry as well given his desaturations before HTN - cont home meds. Monitor renal function in AM HLD - statin RA - on cosentyx monthly outpatient Brief Hospital Course Allergies Allergies Coded Allergies Type Severity Reaction Last Updated Verified adhesive tape Allergy Intermediate Itching 02/04/21 Yes Vital Signs Vital Signs Date Time Temp Pulse Resp B/P (MAP) Pulse Ox O2 Delivery O2 Flow Rate FiO2 02/07/21 11:02 Room Air 02/07/21 08:34 96 02/07/21 08:05 71 128/80 02/07/21 07:15 98.4 20 98.4 Lab Results Laboratory Tests Test 02/06/21 03:15 02/07/21 05:35 Hemoglobin 13.4 g/dL (13.0-17.5) 13.4 g/dL (13.0-17.5) Hematocrit 40.2 % (39.0-53.0) 41.2 % (39.0-53.0) Mean Corpuscular Hemoglobin Concent 33 g/dL (31-37) 33 g/dL (31-37) Prothrombin Time 13.2 SEC (11.7-14.0) 12.4 SEC (11.7-14.0) Prothromb Time International Ratio 1.0 (0.8-1.1) 0.9 (0.8-1.1) Sodium Level 137 mmol/L (136-145) Potassium Level 4.2 mmol/L (3.5-5.1) Chloride Level 101 mmol/L (98-107) Carbon Dioxide Level 29 mmol/L (21-32) Anion Gap 7 (6-14) Blood Urea Nitrogen 17 mg/dL (8-26) Creatinine 0.9 mg/dL (0.7-1.3) Estimated GFR (Cockcroft-Gault) 86.4 Glucose Level 83 mg/dL (70-99) Calcium Level 7.9 mg/dL (8.5-10.1) Laboratory Tests Test 02/07/21 05:35 Hemoglobin 13.4 g/dL (13.0-17.5) Hematocrit 41.2 % (39.0-53.0) Mean Corpuscular Hemoglobin Concent 33 g/dL (31-37) Prothrombin Time 12.4 SEC (11.7-14.0) Prothromb Time International Ratio 0.9 (0.8-1.1) Brief Hospital Course Mr. Gee is a 60 old male, admit for OA right, , s/p right total knee post op, had severe burning pain to knee, gabapentin started decrease the iron PO for hard stool, added miralax here pain better at DC toradol given, will hold ibuprofen and mobic Discharge Information Condition at Discharge: Improved Follow Up: Weeks Disposition/Orders: D/C to Home w/ HH Scheduled Benazepril HCl (Lotensin) 10 Mg Tablet, 20 MG PO DAILY for htn, (Reported) Entered as Reported by: YASHIRA FOWLER on 03/05/18 2341 Last Taken: Unknown Dose on 02/03/21 Last Action: Converted on 02/05/21 1400 by HERNANDEZ BROWN MD Finasteride (Proscar) 5 Mg Tablet, 5 MG PO DAILY, (Reported) Entered as Reported by: [facility] on 01/11/15 1052 Last Taken: Unknown Dose on 02/04/21 Last Action: Continued on 02/05/21 1400 by HERNANDEZ BROWN MD Gabapentin (Gabapentin ) 300 Mg Capsule, 300 MG PO TID for NEUROGENIC PAIN, #90 Prescribed by: JACQUIE KUO on 02/07/21 1152 Multivits,Ca,Minerals/Iron/Fa (Thera-M Tablet) 1 Each Tablet, 1 TAB PO DAILY for replacement post surgery, #30 Prescribed by: JACQUIE KUO on 02/07/21 1152 Polyethylene Glycol 3350 (Polyethylene Glycol 3350) 17 Gm Powd.pack, 17 GM PO DAILY for prevent constipation, #30 Prescribed by: JACQUIE KUO on 02/07/21 1152 Pravastatin Sodium (Pravastatin Sodium) 40 Mg Tablet, 40 MG PO DAILY for HLD, (Reported) Entered as Reported by: YASHIRA FOWLER on 03/05/18 2341 Last Taken: Unknown Dose on 02/04/21 Last Action: Converted on 02/05/21 1400 by HERNANDEZ BROWN MD Secukinumab (Cosentyx Pen) 150 Mg/1 Ml Pen.injctr, 300 MG SQ QMONTH for TREAT RA, (Reported) Entered as Reported by: LEONILA PRYOR on 01/15/21922 Scheduled PRN Diphenhydramine Hcl (Benadryl) 25 Mg Capsule, 25 MG PO PRN DAILY PRN for ALLERGIES, (Reported) Entered as Reported by: LEONILA PRYOR on 01/15/21922 Last Taken: Unknown Dose on 02/03/21 Last Action: Last Taken Edited on 02/04/21817 by Johnson Powell Hydrocodone/Acetaminophen (Hydrocodone-Acetamin 5-325 mg) 1 Each Tablet, 1 TAB PO PRN Q4-6HRS PRN for PAIN, (Reported) Entered as Reported by: YASHIRA FOWLER on 03/05/18 2337 Ketorolac Tromethamine (Ketorolac Tromethamine) 10 Mg Tablet, 1 TAB PO BID PRN for PAIN, #15 Do not take Meloxicam or Ibuprogen while taking this Prescribed by: JACQUIE KUO on 02/07/21 1152 Oxycodone/Apap 7.5-325 (Percocet 7.5-325 Mg Tablet ) 1 Each Tablet, 1 TAB PO PRN TID PRN for PAIN MDD 3 Tablet(s), #30 Ref 0 Prescribed by: JACQUIE KUO on 02/07/21 1153 Discontinued Medications Hydrocodone/Apap 5-325 ([place] 5-325 Tablet) 1 Each Tablet, 1 TAB PO TID for pain, #20 Prescribed by: CHIDI GREEN on 03/07/18 0917 Ibuprofen (Ibuprofen) 800 Mg Tablet, 800 MG PO PRN Q6HRS PRN for INFLAMMATION, (Reported) Entered as Reported by: LEONILA PRYOR on 01/15/21922 Meloxicam (Meloxicam) 15 Mg Tablet, 15 MG PO DAILY for PAIN CONTROL, (Reported) Entered as Reported by: LEONILA PRYOR on 01/15/21922 Last Taken: Unknown Dose on 02/01/21 Last Action: Last Taken Edited on 02/04/21817 by Johnson Powell Patient Instructions Patient Instructions pt seen face to face meds discussed, plan he will follow primary caer next week time 39 minuites Justicifation of Admission Dx: Justifications for Admission: Justification of Admission Dx: Yes (OA, surg) JACQUIE KUO MD Feb 07, 2021 12:07
[2021-02-07] MEDS ORDERED: ACET325T9 PO (12:09)
--- NOTE | 2021-02-07 12:11 | SNU/HH DC ---
DISCHARGE WITH HOME HEALTH DISCHARGE INFORMATION: Discharge Date: Feb 07, 2021 Condition on Discharge: Stable CODE STATUS: Code Status: Full HOME HEALTH: Face to Face: I certify this patient is under my care and that I, or a nurse practitioner or physician's assistant clinical nurse manager working with me, had a face to face encounter that meets the physician face to face encounter requirements with this patient on 02/07 Medical Complications: DJD Intermediate For: Assess/Skilled Observatio, Medication Management, Pain Management RN For Eval/Treatment: Yes Physical Therapy For: Evalulation/Treatment Occupational Therapy For: Evaluation/Treatment Pt Meets Homebound Status: Limited distance walking (new knee, s/p OA replacement) POST DISCHARGE ORDERS: Activity Instructions for Disc: Activity as tolerated, Avoid exertion, Progressive ambulation Weight Bearing Status after Di: As tolerated Bathing Instructions: Shower-keep dressing dry, No Tub Bath until see DIET AFTER DISCHARGE: Regular Wound/Incision Care: Ice to area for comfort, Do not change dressing Other wound/incision instructi: DO NOT change WHITLEY dressing. It remains in place till your appointment CHECKS AFTER DISCHARGE: Checks after discharge: Check blood press - daily FOLLOW-UP: Follow Up With: Dr Mallory on 02/11/21 at 0900. Call for concerns [phone] TREATMENT/EQUIPMENT ORDERS: Adaptive Equipment Issued: Cane, Front wheeled walker CERTIFICATION STATEMENT: Certification Statement: Certification Statement: Based on the above finding, I certify that this patient is confined to the home and needs intermittent half-way care, physical t herapy and/or speech therapy, or continues to need occupational therapy.~ This patient is under my care, and I have initiated the establishment of the plan of care.~ This patient will be followed by myself or a community physician who will periodically review the plan of care. Home Meds Active Scripts Acetaminophen (TYLENOL) 325 Mg Tablet, 2 TAB PO BID PRN for PAIN, #60 TAB Prov:JACQUIE KUO MD 02/07/21 Gabapentin (GABAPENTIN ) 300 Mg Capsule, 300 MG PO TID for NEUROGENIC PAIN, #90 CAP Prov:JACQUIE KUO MD 02/07/21 Ketorolac Tromethamine (KETOROLAC TROMETHAMINE) 10 Mg Tablet, 1 TAB PO BID PRN for PAIN, #15 TAB Do not take Meloxicam or Ibuprogen while taking this Prov:JACQUIE KUO MD 02/07/21 Multivits,Ca,Minerals/Iron/Fa (THERA-M TABLET) 1 Each Tablet, 1 TAB PO DAILY for replacement post surgery, #30 TAB Prov:JACQUIE KUO MD 02/07/21 Oxycodone/Apap 7.5-325 (PERCOCET 7.5-325 MG TABLET ) 1 Each Tablet, 1 TAB PO PRN TID PRN for PAIN MDD 3 Tablet(s), #30 TAB 0 Refills Prov:JACQUIE KUO MD 02/07/21 Polyethylene Glycol 3350 (POLYETHYLENE GLYCOL 3350) 17 Gm Powd.pack, 17 GM PO DAILY for prevent constipation, #30 PKT Prov:JACQUIE KUO MD 02/07/21 Reported Medications Diphenhydramine Hcl (BENADRYL) 25 Mg Capsule, 25 MG PO PRN DAILY PRN for ALLERGIES, CAP 01/15/21 Secukinumab (Cosentyx Pen) 150 Mg/1 Ml Pen.injctr, 300 MG SQ QMONTH for TREAT RA, EACH 01/15/21 Pravastatin Sodium (PRAVASTATIN SODIUM) 40 Mg Tablet, 40 MG PO DAILY for HLD, TAB 03/05/18 Benazepril HCl (Lotensin) 10 Mg Tablet, 20 MG PO DAILY for htn, TAB 03/05/18 Hydrocodone/Acetaminophen (Hydrocodone-Acetamin 5-325 mg) 1 Each Tablet, 1 TAB PO PRN Q4-6HRS PRN for PAIN 03/05/18 Finasteride (PROSCAR) 5 Mg Tablet, 5 MG PO DAILY, TAB 01/11/15 Discontinued Reported Medications Ibuprofen (IBUPROFEN) 800 Mg Tablet, 800 MG PO PRN Q6HRS PRN for INFLAMMATION, TAB 01/15/21 Meloxicam (MELOXICAM) 15 Mg Tablet, 15 MG PO DAILY for PAIN CONTROL, TAB 01/15/21 Discontinued Scripts Hydrocodone/Apap 5-325 (NORCO 5-325 TABLET) 1 Each Tablet, 1 TAB PO TID for pain, #20 TAB Prov:CHIDI GEREN MD 03/07/18 JACQUIE KUO MD Feb 07, 2021 12:11
[2021-02-07] MEDS ORDERED: ASPI325T8 PO (12:12)
--- NOTE | 2021-02-07 15:25 | NUR ---
Patient left around 1520 with his . WHITLEY dressing CDI and working properly. NO IV access present. Discharge education gone over in detail by this nurse, therapy, and the doctor prior to dismissal. Medication sent to the pharmacy by Dr Alvarez. No concerns noted at discharge.
== END 2021-02-07 15:27 | disposition home health service (06) | DRG 470 ==
LOC: SURG 07:27 → 4 NORTH 09:31 → INTOOBSV 09:31 → OBSVTOIN 02-06 11:04
PROVIDERS: ADMIT Orthopaedic Surgery; ATTEND Orthopaedic Surgery
PROC: 0SRC0J9 Replacement of Right Knee Joint with Synthetic Substitute, Cemented, Open Approach (ICD-10-PCS; principal; 2021-02-04 09:00)
DX: M17.11 Unilateral primary osteoarthritis, right knee (principal); E78.5 Hyperlipidemia, unspecified; I10 Essential (primary) hypertension; M06.9 Rheumatoid arthritis, unspecified; R09.02 Hypoxemia; Z82.49 Family history of ischemic heart disease and other diseases of the circulatory system; Z90.49 Acquired absence of other specified parts of digestive tract; Z91.048 Other nonmedicinal substance allergy status
CPT/HCPCS: 36415; 73560; 80048; 83735; 85014; 85018; 85610; 86850; 86900; 86901; 88304; 88311; 90471; 90686; A4213; A4930; A6253; A6258; A6450; A6550; C1713; C1776; G0378; G0379; J0171; J0690; J0780; J1100; J1170; J1885; J2270; J2405; J2704; J2795; J3010; J3370; J7030; 97110-GP; 97116-GP; 97150-GP; 97530-GP; 97535-GO; Q0163

== ENCOUNTER → 2021-02-22 | Outpatient (CLI) | payer OTHER ==
[2021-02-07 08:05] VITALS: BP 128/80
[~2021-02-22] MED LIST changes: +ACET325T9 PO; -ACETAMINOPHEN 500 MG TABLET PO PRN; +ASPI325T8 PO; +GABA300C18 PO; -GABAPENTIN 300 MG CAPSULE. PO PRN; -IV RINGERS,LACTATED 1000ML 1,000 ML IV SCH; +KETO10TA PO; +MULT1TAB92 PO; +OXYC1TAB19 PO; +POLY17PO52 PO; -PROCHLORPERAZINE 10 MG/2 ML VIAL. IVP PRN; -TRANEXAMIC ACID 1,000 MG in IV NS 50ML -- 1ST BAG INJ ONE; -TV=62ml MORPHINE 5 MG, KETOROLAC 30 MG, ROPIV, EPI INT ART ONE; -fentaNYL PF VIAL 100 MCG/2 ML VIAL IVP PRN
--- NOTE | 2021-02-22 15:36 | RAD ---
Site ID: [id number] EXAMINATION: Right lower extremity duplex venous ultrasound. TECHNIQUE: DVT protocol. Multiple sonographic images with color Doppler and waveform interrogation we re performed of the right lower extremity veins with compression and augmentation maneuvers. INDICATION: 60 years Male, rt leg pain/s/p total rt knee 3 weeks ago. . FINDINGS: The right lower extremity veins from the groin to below the knee veins were examined with n ormal color-flow, compressibility and normal waveform demonstrated. IMPRESSION: No evidence of DVT in the right lower extremity. Electronically signed by: Amado Soriano MD (02/22/2021 3:33 PM) [id number]
== END ==
LOC: US 14:46
PROVIDERS: ATTEND Orthopaedic Surgery
DX: M79.604 Pain in right leg (principal); Z96.651 Presence of right artificial knee joint
CPT/HCPCS: 93971

== ENCOUNTER → 2021-03-19 | Outpatient (CLI) | payer OTHER ==
[~2021-03-19] MED LIST changes: +BUPIVACAINE MPF 0.25% 10 ML VIAL. ONE; +IOHEXOL 180 MG/ML 10 ML VIAL. ONE
--- NOTE | 2021-03-19 13:30 | PDOC1 ---
INITIAL PAIN CONSULT DATE OF SERVICE: DOS: DATE: 03/19/21 TIME: 13:22 CHIEF COMPLAINT: Chief Complaint: Right lower extremity pain, status post right total knee arthroplasty HISTORY OF PRESENT ILLNESS: 61-year-old male presents history of pain in the right lower extremity status post right total knee arthroplasty February 09, 2021 patient reports that prior to that he did have pain in the knee but now has significant pain coming up about a week after the procedure and the medial aspect of the thigh radiating up into the groin as well as into the medial knee anterior knee and below the knee about 10 cm to the medial calf patient reports its very sensitive cannot stand for his pant leg to touch it to cannot wear a sock up above his mid calf with difficulty sleeping secondary to light touch and bedsheets causing significant pain on the medial aspect of the leg as well. Patient reports no noted color changes no mottling worse difference in hair growth compared to the left leg but significantly tender and is slightly warm to the touch compared to the left by his report. Patient reports is difficult to walk on his leg even after the physical therapy and rehab from the knee replacement is still painful in the knee joint itself with the medial thigh and knee and calf are not his main complaint. Patient has been taking ibuprofen and Tylenol none of which are helping much still completing his physical therapy exercises from rehab with his surgery patient rates his disability rating 0-10 10 being the worst of the 6 a family home responsibilities 9 with sexual behavior 7 with life support activities and to with self-care activities. Patient reports has not tried any other modalities to decrease the pain applying ice packs is more painful and has not tried heat application to the medial leg. PAST MEDICAL HISTORY: PMH: Hearing loss, hypertension, arthritis PREVIOUS SURGERIES: Past Surgical Hx: Right total knee arthroplasty February 09, 2021, appendectomy , right ankle surgery 2016 after injury CURRENT MEDICATIONS: Current Meds: Active Scripts Medications Dose Route/Sig Max Daily Dose Days Date Category Cosentyx Pen (Secukinumab) 150 Mg/1 Ml Pen.injctr 300 Mg SQ QMONTH 01/15/21 Reported Pravastatin Sodium 40 Mg Tablet 40 Mg PO DAILY 03/05/18 Reported Lotensin (Benazepril HCl) 10 Mg Tablet 20 Mg PO DAILY 03/05/18 Reported Proscar (Finasteride) 5 Mg Tablet 5 Mg PO DAILY 01/11/15 Reported ALLERGIES; Allergies: Coded Allergies: adhesive tape (Verified Allergy, Intermediate, Itching, 02/04/21) FAMILY HISTORY: Family Hx: No major medical problems or conditions that he is aware of. SOCIAL HISTORY: Social Hx: Patient drinks alcohol maybe twice a week at the most does not smoke use any illegal illicit recreational drugs lives with his spouse lives locally in [place] [facility] works as a long for [employer] REVIEW OF SYSTEMS: ROS: Positive for those items mentioned in history of present illness, all systems are reviewed, otherwise negative ,and are complete full and well-documented on patient's chart. PHYSICAL EXAM: VS: Blood pressure 140/106 pulse 74 respirations 18 temperature 97.9 F height is 6 foot weight is 246 pounds. PE: PHYSICAL EXAMINATION: GENERAL: The patient is awake, alert, oriented, appropriate, very pleasant in demeanor HEENT: Shows normocephalic, atraumatic. Extraocular movements are intact and symmetrical. Oral cavity: Mucous membranes moist and pink. Dentition is intact. NECK: Shows anterior throat supple without palpable lymphadenopathy noted. Swallow reflex symmetrical. CHEST: Shows normal on inspection. Breath sounds are clear bilaterally, distant but no rales or rhonchi auscultated. HEART: Shows S1, S2 clear. No murmurs auscultated. ABDOMEN: Soft, nontender, nondistended. No palpable organomegaly is noted. BACK: Shows spine grossly in the midline. Normal-appearing cervical lordotic curvature. There is slightly increased thoracic kyphosis, some minor flattening of the lumbar lordotic curvature. Lumbar paraspinous muscles show symmetrical on inspection, on palpation shows some moderate tenderness diffusely throughout the upper, middle and lower distribution of the paraspinous muscles without specific trigger points, without radiation of pain. The patient has good rotational motion of the lumbar spine, both laterally as well as extension and flexion without significant difficulty. No tenderness over the spinous processes, sacrum or sacroiliac regions. EXTREMITIES: Lower extremities show deep tendon reflexes 1+ in the patellar and tendo calcaneus tendons. Motor exam is 4 on a scale of 5 with right dorsiflexion, extension, quadriceps and hamstring flexion and 5/5 on the left. Peripheral pulses are 1+ posterior tibial. No peripheral edema is noted bilaterally. Lower extremities are warm and dry, significant allodynia is demonstrated with light touch on the medial aspect of the mid to lower thigh me dial knee and mid upper calf no difference in hair growth pattern is appreciated from right to left no discoloration no mottling but is warmer to touch on the right medial knee than the left medial knee. Well-healed surgical scarring is noted over the right knee and slight swelling in the medial compartment compared to the left status post total knee arthroplasty on the right side. Sharp and dull discrimination is intensified with hypersensitivity in the medial thigh as well as the medial knee and medial upper calf on the right side the left side is normal discrimination. SKIN: Shows warm and dry, good turgor. No edema. No sores, rashes or bruising throughout. IMPRESSION: Impression: 61-year-old male with history of recent total knee arthroplasty with significant pain and allodynia postoperatively in the medial thigh medial knee medial calf on the right side consistent with complex regional pain syndrome findings. Hearing loss Hypertension Arthritis Plan: Options were discussed with patient including conservative managements continued therapies and interventional techniques. Patient would like to pursue interventional techniques. We discussed a lumbar sympathetic block using descriptions as well as anatomical models to describe the procedure. Risks were discussed including but not limited to: Bleeding, infection, possibility of epidural hematoma and subsequent neurological compromise, dural puncture, headaches, spinal cord and/or nerve damage, spread of local anesthetic and numbness, vascular uptake of local anesthetic and resuscitative measures as necessary, and poor results regarding pain control. Patient understands and wished to proceed. Patient will return to the clinic in approximately 2 weeks for follow-up, was counseled as to return appointment, activity level, and side effect to be aware of. Patient in prone position under sterile prep and drape using C-arm fluoroscopic guidance patient's lumbar spine was identified and at the L3 vertebral body with oblique view to the right local anesthetic was used to anesthetize the area over the anterior lateral aspect of the vertebral body of L3. Using a 5 inch 22- gauge spinal needle with stylette under direct fluoroscopic vision with both AP and lateral views the needle was advanced to contact the L3 vertebral body at the anterior lateral aspect. At this time 2 cc of contrast was injected showing good spread above and below at the anterior margin of the L3 vertebral body in both AP oblique and lateral views. After again confirmed negative aspiration, 10 cc 0.25% bupivacaine was injected incrementally with negative aspiration after every 2 cc injected for the entire volume. Needle was withdrawn and sterile bandage was applied. Patient tolerated procedure well and had no immediate complications. MARSHALL GAINES MD Mar 19, 2021 13:30
== END | disposition home or self-care (01) ==
LOC: PNCL 10:43
PROVIDERS: ATTEND Anesthesiology
DX: G90.521 Complex regional pain syndrome I of right lower limb (principal); Z96.651 Presence of right artificial knee joint; I10 Essential (primary) hypertension; E78.00 Pure hypercholesterolemia, unspecified; M19.90 Unspecified osteoarthritis, unspecified site; Z87.891 Personal history of nicotine dependence; Z79.899 Other long term (current) drug therapy; Z98.890 Other specified postprocedural states; Z72.89 Other problems related to lifestyle; Z88.8 Allergy status to other drugs, medicaments and biological substances
CPT/HCPCS: 64520; J3490; Q9965